=== PATIENT | male | born 1990 | race Caucasian/White ===

== ENCOUNTER 2020-04-04 09:59 | Day surgery (SDC) | payer OTHER ==
[~2020-04-04] VITALS: Ht 182.9 cm; Wt 113.1 kg
[2020-04-04 10:26] VITALS: BP 130/79; PULSE 80; TEMP 98.3
[2020-04-04] MEDS ORDERED: PROAIR HFA0.09 MG/AC IH (10:26)
[2020-04-04 12:30] VITALS: BP 119/78; PULSE 74; TEMP 97.5
--- NOTE | 2020-04-04 12:30 | NUR ---
Patient arrives to [facility] [place], accompanied by FILLING [employer] P[employer]ING [employer]PERVISOR Naa. He is sitting up in bed, alert and oriented. He immediately requests to use the restroom. He is escorted to the restroom by staff, voids, and returns to room. Patient voided small amount of bloody urine, no stones. Monitoring is applied -VSS and WNL on room air. He has some burning at the urethra, but denies need for intervention. He is given water to drink. Refuses food at this time.
[2020-04-04 12:45] VITALS: BP 134/80; PULSE 71
--- NOTE | 2020-04-04 12:45 | NUR ---
Patient is resting in bed. Tolerating PO well. Denies pain, nausea, or need. VSS on room air.
[2020-04-04 13:00] VITALS: BP 129/78; PULSE 74
--- NOTE | 2020-04-04 13:00 | NUR ---
VSS and WNL on room air. Denies pain or nausea. He ambulates to the restroom and voids. He strains his urine, no stones in urine.
--- NOTE | 2020-04-04 13:25 | NUR ---
Patient has met discharge criteria. Discharge instructions are discussed. He denies any questions and verbalizes understanding. PIV is removed with catheter intact and hemostasis achieved. He changes to his clothing indepedently. He is escorted to the exit via wheelchair by staff. He is discharged to home with ride in private vehicle at 1325.
== END 2020-04-04 13:25 | disposition home or self-care (01) ==
LOC: SDCO 09:59
DX: N20.2 Calculus of kidney with calculus of ureter (principal); J45.909 Unspecified asthma, uncomplicated; Z90.49 Acquired absence of other specified parts of digestive tract; Z11.59 Encounter for screening for other viral diseases
CPT/HCPCS: C1769; C2617; J0690; J1100; J2405; J2704; J3010; J7120